=== PATIENT | male | born 2000 | race Caucasian/White ===

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

== ENCOUNTER 2020-05-27 23:28 | Emergency (ER) | payer BC, OTHER ==
[~2020-05-27] VITALS: Ht 167.6 cm; Wt 63.5 kg
--- NOTE | 2020-05-27 23:30 | NUR ---
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 +GENERALIZED HIVES, - SOB, PT AAOX4, DENIES ANY SOB/CP, VSS, NAD, PENDING ER PROVIDER CHEVY
[2020-05-27] MEDS ORDERED: FAMOTIDINE (20 MG) 20 MG TABLET ONE (23:41)
[2020-05-27] MEDS ORDERED: diphenhydrAMINE HCL 50 MG CAPSULE ONE (23:41)
[2020-05-27] MEDS ORDERED: ACETAMINOPHEN 325 MG TABLET ONE (23:58)
[2020-05-28] MEDS ORDERED: ACETAMINOPHEN 325 MG TABLET PO ONE
[2020-05-28] MEDS ORDERED: diphenhydrAMINE HCL 25 MG CAPSULE PO ONE
[2020-05-28] MEDS ORDERED: FAMOTIDINE (20 MG) 20 MG TABLET PO ONE
[2020-05-28] MEDS ORDERED: IV NS 0.9% 1,000 ML IV ONE
[2020-05-28 00:05] LABS: BASOPHILS # (AUTO) 0.1 /CMM (0.0-0.2); BASOPHILS % (AUTO) 1.5 % (0.0-2.0); EOSINOPHILS % (AUTO) 0.2 % (0.0-6.0); HEMATOCRIT 43 % (39-51); HEMOGLOBIN 14.9 g/dL (13.5-17.5); LYMPHOCYTES # (AUTO) 0.5 /CMM (0.8-4.8); LYMPHOCYTES % (AUTO) 5.8 % (20.0-44.0); MEAN CORPUSCULAR HGB CONC 35 g/dl (31.0-36.0); MEAN CORPUSCULAR VOLUME 92 fL (80-96); MONOCYTES # (AUTO) 0.2 /CMM (0.1-1.30); MONOCYTES % (AUTO) 2.5 % (2.0-12.0); NEUTROPHILS # (AUTO) 7.2 /CMM (1.8-8.9); PLATELET COUNT (AUTO) 297 /CMM (150-450); RED BLOOD CELL COUNT(AUTO) 4.68 MIL/uL (4.5-6.0)
[2020-05-28 00:12] LABS: CALCIUM, SERUM 8.6 mg/dL (8.5-10.1); CREATININE 1.1 mg/dL (0.6-1.3)
[2020-05-28] MEDS ORDERED: FAMO-131 PO (00:24)
[2020-05-28] MEDS ORDERED: [UNRECOGNIZED DRUG - CODE] PO (00:24)
--- NOTE | 2020-05-28 01:16 | NUR ---
Patient discharged to home in stable condition. Written and verbal after care instructions given. Patient verbalizes understanding of instruction.IV removed. Catheter intact and site benign. Pressure and 4x4 applied to site. No bleeding noted.
[2020-05-28 02:48] VITALS: BP 123/75
== END 2020-05-28 01:16 | disposition home or self-care (01) ==
LOC: ER 23:29
DX: R21 Rash and other nonspecific skin eruption (principal); E87.6 Hypokalemia; R00.0 Tachycardia, unspecified; Z79.899 Other long term (current) drug therapy
CPT/HCPCS: 36415; 80048; 85025; 93005; 96360; 99284; J7030; Q0163